=== PATIENT | male | born 1995 | race Caucasian/White ===

== ENCOUNTER 2016-09-11 14:29 | Emergency (ER) | payer OTHER ==
[~2016-09-11] VITALS: Ht 182.9 cm; Wt 81.6 kg
[~2016-09-11 14:29] MED LIST: AVENTYL,PAMELOR10 MG PO; BENTYL10 MG PO; BENTYL20 MG PO; BUDESONIDE EC3 MG PO; ENTOCORT EC3 MG PO; HYDROCODON-ACE1 EAC7 PO; HYOMAX-FT0.125 MG PO; IMITREX100 MG PO; LIALDA1.2 GM PO; MEDROL DOSEPAK4 MG PO; MIRALAX17 GM PO; MOBIC7.5 MG PO; MOTRIN800 MG PO; NAPROXEN500 M2 PO; NAPROXEN500 MG PO; NORCO 5/3251 TABLET PO; NORTRIPTYLINE H10 MG PO; OMEPRAZOLE20 MG PO; OMEPRAZOLE40 M1 PO; PERCOCET 5/31 TABLET PO; PREDNISONE10 MG PO; VICODIN 5-3001 EACH PO; ZOFRAN ODT4 MG PO; ZOFRAN ODT8 MG PO; ZOFRAN4 MG PO; ZOLPIDEM TARTRA10 MG PO
[2016-09-11 14:51] LABS: HEMATOCRIT 45.3 % (38.0-50.0); MCH 29.1 PG (29.0-34.0); MCHC 34.4 G/DL (30.0-36.0); MCV 84.4 FL (86-99); MEAN PLAT.VOLUME 10.1 uM^3 (9.0-12.4); PLATELET COUNT 205 K/uL (156-360); RBC DIS.WIDTH-CV 12.5 % (11.8-14.6); RBC DIS.WIDTH-SD 38.5 % (39-53); RED BLOOD COUNT 5.37 M/uL (4.00-5.50); WHITE BLOOD COUNT 5.8 K/uL (4.1-10.2)
[2016-09-11 15:02] LABS: CHLORIDE 107 mEq/L (99-109); POTASSIUM 4.2 mEq/L (3.7-5.4); SODIUM 140 mEq/L (136-147)
[2016-09-11 15:04] LABS: GLUCOSE 100 mg/dL (70-99)
[2016-09-11 15:05] LABS: ANION GAP 10 MEQ/L (2-14)
[2016-09-11 15:06] LABS: TOTAL BILIRUBIN 0.5 mg/dL (0.0-1.0)
[2016-09-11 15:07] LABS: ALKALINE PHOSPHATASE 104 IU/L (3-129)
[2016-09-11 15:08] LABS: GFR ESTIMATE (CALCULATED) > 59 mL/min/
[2016-09-11 15:09] LABS: UREA NITROGEN (BUN) 16 mg/dL (9-23)
[2016-09-11] MEDS ORDERED: QUETIAPINE FUMA25 MG PO (15:51)
[2016-09-11 15:57] LABS: BILIRUBIN NEGATIVE; BLOOD NEGATIVE; COLOR YELLOW ((YELLOW)); GLUCOSE (STRIP) NEGATIVE; KETONES NEGATIVE; LEUKOCYTES NEGATIVE; NITRITE NEGATIVE; PH, URINE 7.5 (5-8); PROTEIN (STRIP) TRACE; SPECIFIC GRAVITY 1.024 (1.000-1.030); UROBILINOGEN 0.2 MG/DL (0.2-1.0)
[2016-09-11 15:58] LABS: ADD MIUA? NO; UCUL ADDED? NO
[2016-09-11] MEDS ORDERED: PREDNISONE5 M1 PO (18:16)
[2016-09-11] MEDS ORDERED: ZOFRAN ODT8 MG PO (18:16)
[2016-09-11] MEDS ORDERED: NORCO 5/3251 TABLET PO (18:16)
[2016-09-11 18:37] VITALS: BP 126/81
== END 2016-09-11 18:38 | disposition home or self-care (01) ==
LOC: RME 14:29 → EME 14:29 → RME 18:38
DX: R10.32 Left lower quadrant pain (principal); K50.90 Crohn's disease, unspecified, without complications; F17.200 Nicotine dependence, unspecified, uncomplicated; R05 Cough; Z88.2 Allergy status to sulfonamides
CPT/HCPCS: 80053; 81003; 85027; 99281; 99284; J2270; J2405; J7030

== ENCOUNTER 2016-12-26 14:58 | Emergency (ER) | payer OTHER ==
[~2016-12-26] VITALS: Ht 182.9 cm; Wt 82.8 kg
[~2016-12-26 14:58] MED LIST changes: +PREDNISONE5 M1 PO; +QUETIAPINE FUMA25 MG PO
[2016-12-26 15:40] LABS: ADD MIUA? NO; BILIRUBIN NEGATIVE; BLOOD NEGATIVE; COLOR STRAW ((YELLOW)); GLUCOSE (STRIP) NEGATIVE; KETONES NEGATIVE; LEUKOCYTES NEGATIVE; NITRITE NEGATIVE; PROTEIN (STRIP) NEGATIVE; UCUL ADDED? NO; UROBILINOGEN 0.2 MG/DL (0.2-1.0)
[2016-12-26 15:43] LABS: HEMATOCRIT 44.7 % (38.0-50.0); MCH 28.7 PG (29.0-34.0); MCHC 32.9 G/DL (30.0-36.0); MCV 87.1 FL (86-99); MEAN PLAT.VOLUME 10.3 uM^3 (9.0-12.4); PLATELET COUNT 194 K/uL (156-360); RBC DIS.WIDTH-CV 12.6 % (11.8-14.6); RBC DIS.WIDTH-SD 40.3 % (39-53); RED BLOOD COUNT 5.13 M/uL (4.00-5.50); WHITE BLOOD COUNT 6.6 K/uL (4.1-10.2)
[2016-12-26 15:53] LABS: CHLORIDE 109 mEq/L (99-109); POTASSIUM 3.9 mEq/L (3.7-5.4); SODIUM 141 mEq/L (136-147)
[2016-12-26 15:55] LABS: GLUCOSE 100 mg/dL (70-99)
[2016-12-26 15:56] LABS: ANION GAP 9 MEQ/L (2-14)
[2016-12-26 15:57] LABS: TOTAL BILIRUBIN 0.4 mg/dL (0.0-1.0)
[2016-12-26 15:59] LABS: ALKALINE PHOSPHATASE 120 IU/L (3-129); GFR ESTIMATE (CALCULATED) > 59 mL/min/
[2016-12-26 16:00] LABS: UREA NITROGEN (BUN) 11 mg/dL (9-23)
[2016-12-26 16:02] LABS: LIPASE 17 U/L (1.0-51.0)
[2016-12-26 17:15] LABS: C-REACTIVE PROTEIN < 1.0 MG/L (0-10)
[2016-12-26] MEDS ORDERED: LEVAQUIN500 MG PO (17:46)
[2016-12-26 17:59] VITALS: BP 125/71
== END 2016-12-26 18:06 | disposition home or self-care (01) ==
LOC: EME 14:58
DX: K52.9 Noninfective gastroenteritis and colitis, unspecified (principal); K50.90 Crohn's disease, unspecified, without complications; F17.200 Nicotine dependence, unspecified, uncomplicated; Z88.2 Allergy status to sulfonamides
CPT/HCPCS: 80053; 81003; 83690; 85027; 86140; 99281; 99285; J2270; J2405; J7030